=== PATIENT | female | born 1950 | race Caucasian/White ===

== ENCOUNTER → 2017-10-06 | Outpatient (CLI) | payer MEDICARE ==
[~2017-10-06] MED LIST: HORMONE PATCH; OXYC-360 PO; PANT20 PO
== END ==
LOC: PHRSP 07:19
DX: J44.9 Chronic obstructive pulmonary disease, unspecified (principal); R06.00 Dyspnea, unspecified; R05 Cough
CPT/HCPCS: 94060; 94726; 94729